=== PATIENT | female | born 1960 | race Caucasian/White ===

== ENCOUNTER 2017-04-29 17:59 | Emergency (ER) | payer MEDICARE, OTHER ==
[~2017-04-29] VITALS: Ht 165.1 cm; Wt 68.0 kg
--- NOTE | 2017-05-01 13:32 | EKG ---
[facility] [address] [facility] [place], [place] [address] Signed Normal sinus rhythm Rightward axis Borderline ECG No previous ECGs available Confirmed by JONATHAN BRAXTON MD ([id number] on 05/01/2017 1:32:24 PM Electronically Signed By: JONATHAN BRAXTON MD 05/01/17 1332 PATIENT NAME: ESTHER GRESHAM Electrocardiogram DATE OF : 62 PHYSICIAN: JONATHAN BRAXTON MD REPORT #: [id number] REPORT IS CONFIDENTIAL AND NOT TO BE RELEASED WITHOUT AUTHORIZATION
== END 2017-04-29 21:44 | disposition left against medical advice (07) ==
LOC: ED 17:59
DX: K08.89 Other specified disorders of teeth and supporting structures (principal); G89.29 Other chronic pain; R55 Syncope and collapse; M54.5 Low back pain; M54.6 Pain in thoracic spine; Z90.710 Acquired absence of both cervix and uterus
CPT/HCPCS: 71020; 80053; 81001; 84484; 85025; 85379; 93005; 93010; 99284